=== PATIENT | female | born 1965 | race African-American/Black ===

== ENCOUNTER → 2016-10-05 | Outpatient (CLI) | payer MEDICARE ==
[2016-10-05 13:14] LABS: Blood Urea Nitrogen 20 mg/dL (7-17); Non-African American GFR(MDRD) >60 (>60 ml/min/1.73 sqM)
--- NOTE | 2016-10-06 16:15 | MR ---
EXAMINATION TYPE: MR brain wo/w con DATE OF EXAM: 10/05/2016 2:09 PM COMPARISON: NONE HISTORY: Headaches, neck pain CONTRAST: Performed utilizing 18 mL intravenous MultiHance gadolinium contrast. TECHNIQUE: Multiplanar, multiecho imaging on a 3.0 Neva magnet is performed through the brain. Stud y is performed within 24 hours of arrival to the hospital. The craniovertebral junction is normal. The pituitary is normal. Diffusion-weighted imaging is performed. No abnormal hyperintensity is present to suggest an acute i ntracranial infarct or acute ischemic change. Optic chiasm is normal vascular flow voids present. Internal auditory canals and cerebellar pontine a ngles are unremarkable. There are couple of punctate hyperintensities in subcortical and deep white matter slightly greater t saunders expected for the patient age. Findings are nonspecific and can be related to microvascular ischem ic change among other etiologies. Ventricles and sulci are appropriate for the patient age. Following contrast administration, no abnormal enhancement is evident. IMPRESSIONS: 1. Scattered punctate deep white matter changes can be related to microvascular ischemic change.
== END | disposition home or self-care (01) ==
LOC: RADMRIMAIN 12:45
PROVIDERS: ATTEND Family Medicine
DX: R90.82 White matter disease, unspecified (principal); R25.1 Tremor, unspecified
CPT/HCPCS: 82565; 84520; 70553; 36415; A9577

== ENCOUNTER → 2016-12-24 | Outpatient (CLI) | payer MEDICARE ==
--- NOTE | 2016-12-24 10:27 | CT ---
EXAMINATION TYPE: CT abdomen pelvis w con DATE OF EXAM: 12/24/2016 9:10 AM COMPARISON: NONE HISTORY: 51-year-old female diverticulitis TECHNIQUE: Contiguous axial scanning of the abdomen and pelvis following administration of 100 ml Omn ipaque 300 IV contrast. Delayed images through the kidneys and coronal/sagittal reconstructions perf ormed. CT DLP: 785.70 mGycm Automated exposure control for dose reduction was used. FINDINGS: The heart is normal size without pericardial effusion. Lung bases clear without pleural effusion. No focal liver lesion or biliary ductal dilatation. Portal venous system is patent. Gallbladder, adrenal glands, spleen, left kidney, and pancreas show no gross abnormality. There are 2 subcentimeter hypodensities within the mid and lower pole right kidney too small for accu rate CT characterization, probable cysts. There is a 4 mm calcification along the course of the mid left ureter, axial image 55 with minimal as ymmetric prominence to the upper left ureter. No dilated small bowel, free fluid, or free air Oral contrast has progressed to the hepatic flexure. Couple short segment areas of circumferential wall thickening such as at the splenic flexure, axial i mage 15, at the mid sigmoid, axial image 63, and at the rectosigmoid junction, axial and sagittal olga lidia ges 71. No significant diverticular change. In addition, there appears to be nodular soft tissue thic kening along the hepatic flexure, axial image 41 and sagittal image 53. No mesenteric or retroperitoneal lymphadenopathy seen. Bladder is urine distended. Uterus surgically absent. Both ovaries are visualized. No abnormal fluid collection in the pelvis or pelvic lymphadenopathy seen. The right ovary is located anteriorly and la terally. Along the peritoneum, there is incidental 1.1 cm cystic lesion on the a tiny measuring 3 to 4 mm on t he right. Bones: No osseous destructive process. IMPRESSION: 1. NO SIGNIFICANT DIVERTICULAR DISEASE. 2. HOWEVER, THERE ARE SHORT SEGMENTS OF MILD WALL THICKENING IN THE COLON SUCH AT THE SPLENIC FLEX URE, MID SIGMOID, AND RECTOSIGMOID JUNCTION. CORRELATE FOR NONSPECIFIC COLITIS. 3. GIVEN A MORE MASSLIKE AREA OF THICKENING AT THE HEPATIC FLEXURE, DIRECT VISUALIZATION IS RECOMMEND ED TO EXCLUDE NEOPLASM. 4. A 4 MM CALCIFICATION ALONG THE COURSE OF THE LEFT URETER, POSSIBLE URETERIC CALCULUS VERSUS AN ADJ ACENT PHLEBOLITH. NO SIGNIFICANT OBSTRUCTIVE UROPATHY. CORRELATE WITH PATIENT'S SYMPTOMS. 5. BARTHOLIN CYST ON EACH SIDE MEASURING UP TO 1.1 CM ON THE LEFT.
== END | disposition home or self-care (01) ==
LOC: RADCTMAIN 08:17
PROVIDERS: ATTEND Surgery Plastic and Reconstructive Surgery
DX: K63.89 Other specified diseases of intestine (principal); N28.89 Other specified disorders of kidney and ureter
CPT/HCPCS: 74177; Q9967

== ENCOUNTER 2017-01-12 09:39 | Emergency (ER) | payer MEDICARE ==
[2017-01-12 09:47] VITALS: RESP 18
[2017-01-12] MEDS ORDERED: RX INFO: IV CONTRAST WAS GIVEN 1 EACH MISC MISCELLANE PRN (11:02)
[2017-01-12] MEDS ORDERED: SODIUM CHLORIDE 0.9% 500 ML IV STA (11:02)
[2017-01-12] MEDS ORDERED: SODIUM CHLORIDE 0.9% 1,000 ML IV STA (11:02)
[2017-01-12] MEDS ORDERED: DICYCLOMINE 10 MG/ML 2 ML AMP IM STA (11:03)
[2017-01-12] MEDS: MORPHINE SULFATE 4 MG/ML SYRINGE IV STA ×2 (11:31→13:02)
[2017-01-12 11:56] LABS: Basophils % (A) 0 %; CH 33.2; CHCM 34.6; Eosinophils % (A) 1 %; HCT 36.6 % (34.0-46.0); HDW 2.77; HGB 12.2 gm/dL (11.4-16.0); Luc # (Auto) 0.22; Luc % (Auto) 3; Lymphocytes % (A) 25 %; MCH 32.3 pg (25.0-35.0); MCHC 33.4 g/dL (31.0-37.0); MCV 96.6 fL (80.0-100.0); Monocytes # (A) 0.4 k/uL (0-1.0); Monocytes % (A) 5 %; Neutrophils # (A) 5.3 k/uL (1.3-7.7); Neutrophils % (A) 67 %; RBC 3.79 m/uL (3.80-5.40); RDW 13.8 % (11.5-15.5); WBC (Perox) 8.04
[2017-01-12 12:16] LABS: ALT 34 U/L (9-52); AST 21 U/L (14-36); Alkaline Phosphatase 61 U/L (38-126); Amylase 71 U/L (30-110); Anion Gap 12 mmol/L; Blood Urea Nitrogen 12 mg/dL (7-17); Calcium 9.5 mg/dL (8.4-10.2); Carbon Dioxide 24 mmol/L (22-30); Chloride 108 mmol/L (98-107); Glucose 83 mg/dL (74-99); Non-African American GFR(MDRD) >60 (>60 ml/min/1.73 sqM); Potassium 3.8 mmol/L (3.5-5.1); Sodium 144 mmol/L (137-145); Total Bilirubin 0.3 mg/dL (0.2-1.3); Total Protein 7.5 g/dL (6.3-8.2)
--- NOTE | 2017-01-12 12:41 | ED ---
General Adult HPI - General Chief complaint: Abdominal Pain Stated complaint: LEFT SIDE AND BACK PAIN Time Seen by Provider: 01/12/17 10:34 Source: patient, RN notes reviewed, old records reviewed Mode of arrival: ambulatory Limitations: no limitations - History of Present Illness Initial comments: Is a 51-year-old female the ER for evaluation. This patient presents for evaluation of abdominal pain has been going through outpatient testing, and has been following with Dr. Yousif. Patient has no nausea or vomiting. No fevers. She states occasional diarrhea, sometimes with blood. Patient was scheduled for colonoscopy today, did not make it to that appointment. Patient states that she has had testing again including CAT scan, unknown results. No fevers again no travel history. No weight gain or weight loss - Related Data Home Medications Medication Instructions Recorded Confirmed ALPRAZolam [Xanax] 1 mg PO DAILY PRN 04/02/14 01/12/17 Metoprolol Tartrate [Lopressor] 100 mg PO DAILY 04/02/14 01/12/17 Potassium Chloride [Klor-Con 10] 10 meq PO DAILY 04/02/14 01/12/17 traZODone HCL [traZODone] 50 mg PO HS PRN 04/02/14 01/12/17 Albuterol Sulfate [Ventolin Hfa] 2 puff INHALATION RT-Q4H PRN 01/12/17 01/12/17 Cetirizine HCl [Zyrtec] 10 mg PO DAILY 01/12/17 01/12/17 Citalopram Hydrobromide [CeleXA] 20 mg PO HS 01/12/17 01/12/17 Gabapentin 600 mg PO TID PRN 01/12/17 01/12/17 HYDROcodone/APAP 10-325MG [[place] 0.5 tab PO Q8H PRN 01/12/17 01/12/17 10-325] Hydrocortisone Cream 1 applic TOPICAL DAILY PRN 01/12/17 01/12/17 [Hydrocortisone 1% Cream] Lisinopril [Zestril] 5 mg PO DAILY 01/12/17 01/12/17 amLODIPine [Norvasc] 5 mg PO DAILY 01/12/17 01/12/17 diphenhydrAMINE [Benadryl] 25 mg PO DAILY PRN 01/12/17 01/12/17 Allergies Allergy/AdvReac Type Severity Reaction Status Date / Time duloxetine HCl Allergy Dyspnea Verified 01/12/17 12:27 [From Cymbalta] ibuprofen [From Motrin] Allergy Dyspnea Verified 01/12/17 12:27 magnesium oxide [From MagOx] Allergy Cough Verified 01/12/17 12:27 naproxen Allergy Rash/Hives Verified 01/12/17 12:27 pregabalin [From Lyrica] Allergy Dyspnea Verified 01/12/17 12:27 adhesive AdvReac Rash/Hives Verified 01/12/17 12:27 Review of Systems ROS Statement: Those systems with pertinent positive or pertinent negative responses have been documented in the HPI. ROS Other: All systems not noted in ROS Statement are negative. Past Medical History Past Medical History: Cancer, Dialysis, Fibromyalgia, Hypertension Additional Past Medical History / Comment(s): cervical cancer, sarcodosis History of Any Multi-Drug Resistant Organisms: None Reported Past Surgical History: Breast Surgery, Section, Hysterectomy, Tubal Ligation Additional Past Surgical History / Comment(s): hemmorhoid, cervical Past Psychological History: Anxiety, Depression Smoking Status: Current every day smoker Past Alcohol Use History: None Reported Past Drug Use History: None Reported General Exam Limitations: no limitations General appearance: alert, in no apparent distress Head exam: Present: atraumatic, normocephalic, normal inspection Eye exam: Present: normal appearance, PERRL, EOMI. Absent: scleral icterus, conjunctival injection, periorbital swelling ENT exam: Present: normal exam, mucous membranes moist Neck exam: Present: normal inspection. Absent: tenderness, meningismus, lymphadenopathy Respiratory exam: Present: normal lung sounds bilaterally. Absent: respiratory distress, wheezes, rales, rhonchi, stridor Cardiovascular Exam: Present: regular rate, normal rhythm, normal heart sounds. Absent: systolic murmur, diastolic murmur, rubs, gallop, clicks GI/Abdominal exam: Present: soft, normal bowel sounds. Absent: distended, tenderness, guarding, rebound, rigid Extremities exam: Present: normal inspection, full ROM, normal capillary refill. Absent: tenderness, pedal edema, joint swelling, calf tenderness Back exam: Present: normal inspection Neurological exam: Present: alert, oriented X3, CN II-XII intact Psychiatric exam: Present: normal affect, normal mood Skin exam: Present: warm, dry, intact, normal color. Absent: rash Course Vital Signs 01/12/17 09:45 Temperature 99.1 F Pulse Rate 101 H Respiratory 18 Rate Blood Pressure 127/71 O2 Sat by Pulse 100 Oximetry - Reevaluation(s) Reevaluation #1: 01/12/17 12:41 Medical record prior CAT scan are reviewed 01/12/17 13:29 CT today confirms prior thought of kidney stone. Patient still with any stone today is also shown on CT and that has advanced Medical Decision Making - Medical Decision Making 51-year-old female here for evaluation of abdominal pain, left-sided flank pain , swelling. Positive kidney stones. Patient given pain control can be discharged home - Lab Data Result diagrams: 01/12/17 11:41 01/12/17 11:41 Lab Results 01/12/17 01/12/17 Range/Units 11:41 11:41 WBC 8.0 (3.8-10.6) k/uL RBC 3.79 L (3.80-5.40) m/uL Hgb 12.2 (11.4-16.0) gm/dL Hct 36.6 (34.0-46.0) % MCV 96.6 (80.0-100.0) fL MCH 32.3 (25.0-35.0) pg MCHC 33.4 (31.0-37.0) g/dL RDW 13.8 (11.5-15.5) % Plt Count 212 (150-450) k/uL Neutrophils % 67 % Lymphocytes % 25 % Monocytes % 5 % Eosinophils % 1 % Basophils % 0 % Neutrophils # 5.3 (1.3-7.7) k/uL Lymphocytes # 2.0 (1.0-4.8) k/uL Monocytes # 0.4 (0-1.0) k/uL Eosinophils # 0.0 (0-0.7) k/uL Basophils # 0.0 (0-0.2) k/uL Sodium 144 (137-145) mmol/L Potassium 3.8 (3.5-5.1) mmol/L Chloride 108 H (98-107) mmol/L Carbon Dioxide 24 (22-30) mmol/L Anion Gap 12 mmol/L BUN 12 (7-17) mg/dL Creatinine 0.90 (0.52-1.04) mg/dL Est GFR (MDRD) Af Amer >60 (>60 ml/min/1.73 sqM) Est GFR (MDRD) Non-Af >60 (>60 ml/min/1.73 sqM) Glucose 83 (74-99) mg/dL Calcium 9.5 (8.4-10.2) mg/dL Total Bilirubin 0.3 (0.2-1.3) mg/dL AST 21 (14-36) U/L ALT 34 (9-52) U/L Alkaline Phosphatase 61 (38-126) U/L Total Protein 7.5 (6.3-8.2) g/dL Albumin 4.7 (3.5-5.0) g/dL Amylase 71 (30-110) U/L Lipase 44 (23-300) U/L - Radiology Data Radiology results: report reviewed (Computed tomography scan and pelvis positive for kidney stones), image reviewed Disposition Clinical Impression: Abdominal pain, Calculus of left kidney, Ureterolithiasis Disposition: HOME SELF-CARE Condition: Good Instructions: Kidney Stones (ED) Referrals: Sergo Del Toro DO [Primary Care Provider] - 1-2 days Eusebio Marin MD [STAFF PHYSICIAN] - 1-2 days
--- NOTE | 2017-01-12 13:06 | CT ---
EXAMINATION TYPE: CT abdomen pelvis w con DATE OF EXAM: 01/12/2017 COMPARISON: 12/24/2016 HISTORY: Stomach, left side flank and pelvic pain with bloating CT DLP: 857.4 mGycm Automated exposure control for dose reduction was used. TECHNIQUE: Helical acquisition of images was performed from the lung bases through the pelvis. CONTRAST: Performed without Oral Contrast and with IV Contrast, patient injected with 100 mL of Omnipaque 300. FINDINGS: There is mild subsegmental atelectasis at the left lung base. There is no pleural effusion. There is no pericardial effusion. Liver spleen pancreas gallbladder appear normal. Bile ducts are not dilated. There is slight decrease d cortical enhancement of the left kidney compared to the right. There is mild left-sided hydronephro sis and hydroureter. There is a possible 6 mm calculus in the distal left ureter 5 cm from the ureter ovesical junction. Bladder distends smoothly. There is no sign of a pelvic mass. There is a 7 mm cortical cyst on the po sterior right kidney. There is no retroperitoneal adenopathy. There is no ascites. I see no bony destructive process. IMPRESSION: THERE IS A CALCULUS IN THE DISTAL LEFT URETER THAT HAS MIGRATED INFERIORLY COMPARED TO LAST EXAM. LEF T SIDED HYDRONEPHROSIS AND HYDROURETER IS WORSE THAN LAST EXAM. NO EVIDENCE OF DIVERTICULITIS. NO ASHOK DENCE OF ANY INTESTINAL ABNORMALITY..
[2017-01-12 13:49] VITALS: BP 127/68; PULSE 87; TEMP 98.5
== END 2017-01-12 13:48 | disposition home or self-care (01) ==
LOC: EC 09:39
DX: N13.2 Hydronephrosis with renal and ureteral calculous obstruction (principal); I10 Essential (primary) hypertension; F32.9 Major depressive disorder, single episode, unspecified; F17.200 Nicotine dependence, unspecified, uncomplicated; Z88.6 Allergy status to analgesic agent; Z88.8 Allergy status to other drugs, medicaments and biological substances; Z91.048 Other nonmedicinal substance allergy status; Z79.899 Other long term (current) drug therapy
CPT/HCPCS: 99284; 96374; 96376; 96361 ×2; 96372; 36415; 80053; 82150; 83605; 83690; 85025; 87086; 74177; J2270; J0500; Q9967

== ENCOUNTER 2017-03-26 10:27 | Day surgery (SDC) | payer MEDICARE ==
[2017-03-21 13:45] VITALS: BMI 30.9
--- NOTE | 2017-03-26 08:58 | P.GSHP ---
History of Present Illness H&P Date: 03/26/17 CHIEF COMPLAINT: Colon screen HISTORY OF PRESENT ILLNESS: The patient is a 52-year-old female who presents for colon screen. Lower endoscopy was offered for further evaluation and management. PAST MEDICAL HISTORY: Please see list. PAST SURGICAL HISTORY: Please see list. MEDICATIONS: Please see list. ALLERGIES: Please see list. SOCIAL HISTORY: No illicit drug use FAMILY HISTORY: No reports of Crohn disease or ulcerative colitis. REVIEW OF ORGAN SYSTEMS: CONSTITUTIONAL: No reports of fevers or chills. PHYSICAL EXAM: VITAL SIGNS: Stable GENERAL: Well-developed pleasant in no acute distress. HEENT: No scleral icterus. Extraocular movements grossly intact. Moist buccal mucosa. NECK: Supple without lymphadenopathy. CHEST: Unlabored respirations. Equal bilateral excursions. CARDIOVASCULAR: Regular rate and rhythm. Distal 2+ pulses. ABDOMEN: Soft, nontender, nondistended. MUSCULOSKELETAL: No clubbing, cyanosis, or edema. ASSESSMENT: 1. Colon screen. PLAN: 1. Recommend proceeding with a lower endoscopy Past Medical History Past Medical History: Cancer, Fibromyalgia, Hypertension Additional Past Medical History / Comment(s): cervical cancer, sarcodosis History of Any Multi-Drug Resistant Organisms: None Reported Past Surgical History: Breast Surgery, Section, Hysterectomy, Tubal Ligation Additional Past Surgical History / Comment(s): HEMORRHOIDECTOMY. COLONOSCOPY. RT BREAST BX Past Anesthesia/Blood Transfusion Reactions: No Reported Reaction Smoking Status: Current every day smoker - Past Family History Mother Family Medical History: No Reported History Medications and Allergies Home Medications Medication Instructions Recorded Confirmed Type ALPRAZolam [Xanax] 1 mg PO DAILY PRN 04/02/14 03/21/17 History Metoprolol Tartrate [Lopressor] 100 mg PO DAILY 04/02/14 03/21/17 History Potassium Chloride [Klor-Con 10] 10 meq PO DAILY 04/02/14 03/21/17 History traZODone HCL [traZODone] 50 mg PO HS PRN 04/02/14 03/21/17 History Albuterol Sulfate [Ventolin Hfa] 2 puff INHALATION RT-Q4H PRN 01/12/17 03/21/17 History Cetirizine HCl [Zyrtec] 10 mg PO DAILY 01/12/17 03/21/17 History Citalopram Hydrobromide [CeleXA] 20 mg PO HS 01/12/17 03/21/17 History Gabapentin 600 mg PO TID PRN 01/12/17 03/21/17 History HYDROcodone/APAP 10-325MG [[place] 0.5 tab PO Q8H PRN 01/12/17 03/21/17 History 10-325] Hydrocortisone Cream 1 applic TOPICAL DAILY PRN 01/12/17 03/21/17 History [Hydrocortisone 1% Cream] Lisinopril [Zestril] 5 mg PO DAILY 01/12/17 03/21/17 History amLODIPine [Norvasc] 5 mg PO DAILY 01/12/17 03/21/17 History diphenhydrAMINE [Benadryl] 25 mg PO DAILY PRN 01/12/17 03/21/17 History Allergies Allergy/AdvReac Type Severity Reaction Status Date / Time duloxetine HCl Allergy Dyspnea Verified 03/21/17 13:40 [From Cymbalta] ibuprofen [From Motrin] Allergy Dyspnea Verified 03/21/17 13:40 magnesium oxide [From MagOx] Allergy Cough Verified 03/21/17 13:40 naproxen Allergy Rash/Hives Verified 03/21/17 13:40 pregabalin [From Lyrica] Allergy Dyspnea Verified 03/21/17 13:40 adhesive AdvReac Rash/Hives Verified 03/21/17 13:40
[~2017-03-26 10:27] MED LIST: LACTATED RINGERS 1,000 ML IV SCH
[2017-03-26 11:08] VITALS: TEMP 98.2
[2017-03-26] MEDS ORDERED: PROPOFOL 10 MG/ML 20 ML VIAL IV ONE (11:15)
--- NOTE | 2017-03-26 11:45 | P.PCN ---
Date of Procedure: 03/26/17 Preoperative Diagnosis: Postoperative Diagnosis: Procedure(s) Performed: Implants: Indications for Procedure: Operative Findings: Description of Procedure: PREOPERATIVE DIAGNOSIS: Colonoscopy screening. Family history of colon cancer, high-risk. POSTOPERATIVE DIAGNOSIS: Colonoscopy screening. Family history of colon cancer, high-risk. External hemorrhoids, grade 4. OPERATION: Colonoscopy to the ileocecal valve and appendiceal orifice. SURGEON: Tonya Steel MD. ANESTHESIA: MAC. INDICATIONS: The patient is a 52-year-old female who presents for colonoscopy screening. Benefits and risks were described and informed consent was obtained. DESCRIPTION OF PROCEDURE: The patient had undergone Gatorade, MiraLAX and Dulcolax prep. She had been brought into the operating room and laid in the left lateral decubitus position. After adequate intravenous sedation, the rectum was examined with 2% lidocaine jelly. External hemorrhoids were encountered. The rectal tone was within normal limits. No lesions were palpated in the rectal vault. At 60 cm from the anal verge a tight tortuosity of the splenic flexure prohibited use of the adult colonoscope hence a pediatric colonoscope was used. An Olympus colonoscope was advanced until the ileocecal valve and appendiceal orifice were clearly viewed. She had moderately redundant sigmoid colon requiring abdominal pressure for advancement. The prep was fair with visualization of the mucosal folds. The scope was removed with visualization of each mucosal fold. No scattered diverticulosis was encountered. No colonic polyps were found. No evidence of focal colitis was found. Retroflexion of the scope demonstrated grade 3 internal hemorrhoids without active bleeding or inflammation. The colon was desufflated. The patient had tolerated the procedure well. Withdrawal time was over 6 minutes. FINDINGS: Internal hemorrhoids, grade 3 External prolapsed hemorrhoids, grade 4. No arteriovenous malformations. No adenomatous polyps. No scattered diverticulosis. No focal colitis. RECOMMENDATIONS: Lower endoscopy in 2021. She reports symptomatic hemorrhoids and may benefit from hemorrhoidectomy. Plan - Discharge Summary New Discharge Prescriptions: No Action Metoprolol Tartrate [Lopressor] 100 mg PO DAILY Potassium Chloride [Klor-Con 10] 10 meq PO DAILY traZODone HCL [traZODone] 50 mg PO HS PRN PRN Reason: Insomnia ALPRAZolam [Xanax] 1 mg PO DAILY PRN PRN Reason: Anxiety diphenhydrAMINE [Benadryl] 25 mg PO DAILY PRN PRN Reason: Allergy Symptoms Lisinopril [Zestril] 10 mg PO DAILY Hydrocortisone Cream [Hydrocortisone 1% Cream] 1 applic TOPICAL DAILY PRN PRN Reason: Itching Citalopram Hydrobromide [CeleXA] 20 mg PO HS Cetirizine HCl [Zyrtec] 10 mg PO DAILY Gabapentin 600 mg PO TID PRN PRN Reason: Pain Albuterol Sulfate [Ventolin Hfa] 2 puff INHALATION RT-Q4H PRN PRN Reason: Shortness Of Breath HYDROcodone/APAP 10-325MG [[place] 10-325] 0.5 tab PO Q8H PRN PRN Reason: Pain Tamsulosin [Flomax] 0.4 mg PO DAILY #30 cap Discharge Medication List ALPRAZolam [Xanax] 1 mg PO DAILY PRN 04/02/14 [History] Metoprolol Tartrate [Lopressor] 100 mg PO DAILY 04/02/14 [History] Potassium Chloride [Klor-Con 10] 10 meq PO DAILY 04/02/14 [History] traZODone HCL [traZODone] 50 mg PO HS PRN 04/02/14 [History] Albuterol Sulfate [Ventolin Hfa] 2 puff INHALATION RT-Q4H PRN 01/12/17 [History] Cetirizine HCl [Zyrtec] 10 mg PO DAILY 01/12/17 [History] Citalopram Hydrobromide [CeleXA] 20 mg PO HS 01/12/17 [History] Gabapentin 600 mg PO TID PRN 01/12/17 [History] HYDROcodone/APAP 10-325MG [[place] 10-325] 0.5 tab PO Q8H PRN 01/12/17 [History] Hydrocortisone Cream [Hydrocortisone 1% Cream] 1 applic TOPICAL DAILY PRN [History] Lisinopril [Zestril] 10 mg PO DAILY 01/12/17 [History] Tamsulosin [Flomax] 0.4 mg PO DAILY #30 cap 01/12/17 [Rx] diphenhydrAMINE [Benadryl] 25 mg PO DAILY PRN 01/12/17 [History] Follow up Appointment(s)/Referral(s): Tonya Steel MD [STAFF PHYSICIAN] - 04/15/17 Discharge Disposition: HOME SELF-CARE
[2017-03-26 12:16] VITALS: BP 141/86; PULSE 53; RESP 18
== END 2017-03-26 12:39 | disposition home or self-care (01) ==
LOC: ORWHC2ENDO 10:27
PROVIDERS: ATTEND Surgery Plastic and Reconstructive Surgery
DX: Z12.11 Encounter for screening for malignant neoplasm of colon (principal); K64.2 Third degree hemorrhoids; K64.3 Fourth degree hemorrhoids; F17.200 Nicotine dependence, unspecified, uncomplicated; I10 Essential (primary) hypertension; J45.909 Unspecified asthma, uncomplicated; Z79.899 Other long term (current) drug therapy; Z88.6 Allergy status to analgesic agent; Z88.8 Allergy status to other drugs, medicaments and biological substances; Z79.84 Long term (current) use of oral hypoglycemic drugs; Z80.0 Family history of malignant neoplasm of digestive organs
CPT/HCPCS: 45378; J2704